=== PATIENT | female | born 1980 ===

== ENCOUNTER 2017-06-30 09:17 | Inpatient (IN) | payer MEDICAID ==
[2017-06-30 10:21] LABS: BASO % 0.4 % (0.0-2.0); EOS % 0.5 % (0.0-4.0); HEMATOCRIT 36.5 % (34.0-47.0); LYMPH # 2.4 K/uL (1.0-4.3); LYMPH % 31.2 % (20.0-40.0); MEAN CELL VOLUME 73.6 fL (81.0-99.0); MEAN CORPUSCULAR HEMOGLOBIN 23.9 pg (27.0-31.0); MEAN CORPUSCULAR HGB CONC 32.5 g/dL (33.0-37.0); MEAN PLATELET VOLUME 9.5 fL (7.2-11.7); MONO # 0.7 K/uL (0.0-0.8); MONO % 8.4 % (0.0-10.0); RED CELL DISTRIBUTION WIDTH 14.9 % (11.5-14.5); WHITE BLOOD COUNT 7.8 K/uL (4.8-10.8)
[2017-06-30 10:28] LABS: RBC URINE 1 /hpf (0-3); URINE BACTERIA RARE (<OCC); URINE BILIRUBIN NEGATIVE (NEGATIVE); URINE BLOOD NEGATIVE (NEGATIVE); URINE COLOR Yellow (YELLOW); URINE GLUCOSE (UA) NORMAL (Normal); URINE HYALINE CAST 0-2 /lpf (0-2); URINE KETONE NEGATIVE (NEGATIVE); URINE LEUKOCYTE ESTERASE 3+ Leu/uL (Negative); URINE PROTEIN NEGATIVE (NEGATIVE); URINE UROBILINOGEN NORMAL mg/dL (0.2-1.0); WBC URINE 13 /hpf (0-5)
[2017-06-30 10:33] LABS: ALKALINE PHOSPHATASE 169 U/L (38-126); ALT/SGPT 41 U/L (9-52); AST/SGOT 28 U/L (14-36); BILIRUBIN,TOTAL 0.8 mg/dL (0.2-1.3); BLOOD UREA NITROGEN 10 mg/dL (7-17); CALCIUM 7.9 mg/dl (8.6-10.4); CARBON DIOXIDE 22 mmol/L (22-30); CHLORIDE 107 mmol/L (98-107); GFR AFRICAN-AMERICAN > 60; GLUCOSE,RANDOM 71 mg/dL (65-105); POTASSIUM 4.1 mmol/L (3.6-5.2); SODIUM 137 mmol/L (132-148); TOTAL PROTEIN 7.1 g/dL (6.3-8.3)
[2017-06-30 10:37] LABS: ALB/GLOB RATIO 0.9 (1.0-2.1)
[2017-06-30] MEDS ORDERED: cefOXitin IV 2 gm in Dextrose 2 GM/50 ML BAG IVPB ONE ×3 (11:12→20:22)
[2017-06-30] MEDS ORDERED: Sodium Citrate/Citric Acid 15 ml Sol PO ONE (11:12)
[2017-06-30] MEDS ORDERED: Lactated Ringer's 1,000 ML IV SCH (11:15)
[2017-06-30] MEDS ORDERED: Sodium Citrate/Citric Acid 15 ml Sol ONE (11:36)
[2017-06-30] MEDS ORDERED: Oxytocin 10 Units/ml Inj ONE (11:43)
[2017-06-30] MEDS ORDERED: Morphine 1 mg/ml preservative-free Inj(Duramorph) ONE (12:29)
[2017-06-30] MEDS ORDERED: Oxycodone/Acetaminophen 5/325 mg Tab PO PRN ×2 (13:37)
[2017-06-30] MEDS: Simethicone 80 mg Chewtab PO SCH ×2 (14:38→17:56)
[2017-06-30] MEDS ORDERED: DiphenhydrAMINE 50 mg/ml Inj IVP PRN (15:48)
--- NOTE | 2017-06-30 15:53 | HP ---
PROCEDURE DATE: 06/30/2017 HISTORY OF PRESENT ILLNESS: The patient is a 37-year-old female, 3, para 2 with a history of 2 previous sections, who comes in complaining of contractions since approximately 1:00 a.m. this morning. She also complains of decreased movement. The patent is 38 weeks by gestation, currently on insulin for gestational diabetes. course is significant for history of gestational diabetes controlled with insulin. The patient has had poor sugars in the last 2 weeks and had been recommended by Dr. Rogers for delivery at 37 weeks. PAST OBSTETRICAL HISTORY: Significant for section x2. PAST MEDICAL HISTORY: Significant for gestational diabetes. ALLERGIES: NONE. CURRENT MEDICATIONS: Vitafol 1 tablet daily. PHYSICAL EXAMINATION: VITAL SIGNS: Her blood pressure is 110/70, pulse is 72, respiratory rate is 20, temperature is 98.8. HEAD, EYES, EARS, NOSE AND THROAT: Within normal. CHEST: Clear. CARDIAC: Reveals normal heart sounds without any murmurs. LUNGS: Clear. BREASTS: Reveal no masses. ABDOMEN: Symphyseal-fundal height is 38 cm longitudinal lie, vertex. heart tones are normal. PELVIC: Cervix is 2 cm, 50% effaced, -2 station, vertex. ADMITTING DIAGNOSES: Intrauterine at 37 weeks, poorly-controlled gestational diabetes, insulin dependent; in early labor. There is decreased movement. PLAN: To admit the patient for a lower segment section. Prior to being staged for the surgical procedure, the patient underwent an informed consent, discussion and education session with me in the hospital lasting approximately 45 minutes, during which time I explained with an understandable terms the following, the nature and extent of the disease process and the nature and extent of the contemplated operation. Also explained were the risks and potential complications of the operative procedures to include, but not limited to infection, hemorrhage, deep vein thrombosis, atelectasis, pneumonia, pulmonary embolism, damage to the bladder, damage to the ureter, renal insufficiency, renal failure, wound infection, wound dehiscence, incisional hernia, keloid formation, damage to large and small intestines, damage to inferior vena cava and the aorta requiring extensive repair and anesthesia complications. Electrolyte imbalance, possibility of , low scores, breathing difficulties in the baby, risk of prematurity and other complications that were discussed, but are not listed above. I also discussed with the patient the anticipated benefits and results of the surgery including a conservative estimate of the successful outcome. I discussed with the patient about the operation that are not accomplished. I informed the patient of the possibility of unanticipated pathology requiring a more extensive procedure. All of the questions from the patient were encouraged, welcomed and answered to her satisfaction. Emmanuel Vidal MD
[2017-06-30] MEDS: (Novolog) Insulin Aspart, Recombinant 100 u/ml 10 ml vial SC SCH ×2 (16:06→23:18)
[2017-06-30] MEDS ORDERED: Dextrose 5%/Lactated Ringer's 1,000 ML IV SCH (16:15)
[2017-06-30] MEDS ORDERED: cefOXitin IV 2 gm in Dextrose 2 GM/50 ML BAG IVPB SCH (20:30)
[2017-07-01] MEDS ORDERED: cefOXitin 2 GM in Sodium Chloride 0.9% 100 ML IV SCH (04:30)
[2017-07-01] MEDS: (Novolog) Insulin Aspart, Recombinant 100 u/ml 10 ml vial SC SCH ×4 (06:32→22:31)
[2017-07-01] MEDS: Simethicone 80 mg Chewtab PO SCH ×4 (06:35→22:25)
[2017-07-01 08:33] LABS: BASO % 0.2 % (0.0-2.0); EOS % 0.4 % (0.0-4.0); HEMATOCRIT 34.6 % (34.0-47.0); LYMPH # 1.3 K/uL (1.0-4.3); LYMPH % 15.1 % (20.0-40.0); MEAN CELL VOLUME 74.5 fL (81.0-99.0); MEAN CORPUSCULAR HEMOGLOBIN 24.4 pg (27.0-31.0); MEAN CORPUSCULAR HGB CONC 32.8 g/dL (33.0-37.0); MEAN PLATELET VOLUME 9.5 fL (7.2-11.7); MONO # 0.7 K/uL (0.0-0.8); MONO % 8.6 % (0.0-10.0); RED CELL DISTRIBUTION WIDTH 15.1 % (11.5-14.5); WHITE BLOOD COUNT 8.5 K/uL (4.8-10.8)
[2017-07-01] MEDS: Enoxaparin 40 mg Syringe SC SCH (10:55)
[2017-07-01] MEDS ORDERED: cefOXitin IV 2 gm in Dextrose 2 GM/50 ML BAG IVPB ONE ×2 (12:00→14:10)
[2017-07-01] MEDS ORDERED: Bisacodyl 5mg EC Tab PO ONE (13:38)
--- NOTE | 2017-07-01 18:50 | OP ---
PROCEDURE DATE: 06/30/2017 PREOPERATIVE DIAGNOSES: Intrauterine at 37 weeks, poorly controlled diabetes mellitus, early labor. POSTOPERATIVE DIAGNOSES: Intrauterine at 37 weeks, poorly controlled diabetes mellitus, early labor. PROCEDURE: Lower segment section. SURGEON: Emmanuel Vidal MD. INTERPRETER FOR THE DEAF: Garry Marquez MD. FINDINGS: A live male . Apgars 9 at one minute and 9 at five minutes with normal tubes and ovaries. ESTIMATED BLOOD LOSS: 300 mL. COMPLICATIONS: Nil. DESCRIPTION OF PROCEDURE: After the risks, benefits and alternatives of the planned procedures, including but not limited to infection, hemorrhage, deep vein thrombosis, atelectasis, pneumonia, pulmonary embolism, damage to the bladder, damage to the ureter, renal insufficiency, renal failure, wound infection, wound dehiscence, incisional hernia, keloid formation, damage to the large and small intestine, damage to the inferior vena cava and the aorta requiring extensive repair, anesthesia complications, electrolyte imbalance, possibility of , fluid overload, cerebral edema, air embolism and other complications that were discussed, but are not listed above, have been explained to the patient and all her questions answered, informed consent was obtained. The patient was taken to the operating room in a stable condition. Under suitable level of spinal anesthesia, she was prepped and draped in a sterile fashion after having been placed in a supine position. The abdomen was entered through a Pfannenstiel-type incision and carried through the subcutaneous tissues to the fascia. Fascia was opened transversely and dissected off the rectus abdominis musculature. The rectus abdominis musculature was then in the midline to remove the parietal peritoneum, which was entered sharply and incised superiorly and inferiorly. The bladder peritoneum was then incised in a curvilinear fashion and dissected off the lower uterine segment. The lower uterine segment was then entered through a curvilinear incision. Surgeon's fingers were inserted into the lower uterine segment to grasp the infant's head, which was lying in a right occipital anterior position. Head was easily delivered. Nose and mouth were suctioned free of amniotic fluid and the remainder of the was delivered without any difficulty. Cord was doubly clamped and cut. The baby was handed over to the pediatricians who were in attendance. Cord blood was collected. Pitocin running, placenta was manually removed. The endometrium was then cleaned free of remaining membranes and clots. The uterine incision was then closed in layers with the first layer being a running interlocking layer using #1 chromic and the second layer being used to imbricate the first layer. Hemostasis was good. The bladder peritoneum was then reapproximated using running suture of 2-0 chromic. Peritoneal cavity was then irrigated using copious amounts of saline. The saline was evacuated. The abdomen was then closed in layers with 0 chromic to the parietal peritoneum. Recti muscles were reapproximated using interrupted sutures of 0 chromic. Fascia was reapproximated using 2 separate running sutures of 0 Vicryl to meet in the midline. Subcutaneous tissues were reapproximated using interrupted sutures of 0 plain and the initial skin incision was reapproximated using 4-0 Vicryl in a subcuticular fashion. Estimated blood loss for the procedure was 300 mL. Pad, needle and instrument counts were correct x2. There were no complications. Emmanuel Vidal MD
[2017-07-02] MEDS: (Novolog) Insulin Aspart, Recombinant 100 u/ml 10 ml vial SC SCH ×2 (06:46→11:59)
[2017-07-02] MEDS: Simethicone 80 mg Chewtab PO SCH ×5 (07:48→21:40)
[2017-07-02] MEDS: Enoxaparin 40 mg Syringe SC SCH (09:51)
[2017-07-02] MEDS: guaiFENesin 100 mg/5 ml Syrup UD PO PRN ×2 (12:00→17:27)
--- NOTE | 2017-07-02 13:24 | RAD ---
Chest x-ray two views History: Cough. Comparison: None available. Findings: No focal infiltrate or effusion. Bibasilar breast and nipple shadows. Heart size within normal limits. Impression: No focal infiltrate or effusion.
[2017-07-03] MEDS: guaiFENesin 100 mg/5 ml Syrup UD PO PRN (00:07)
[2017-07-03 01:11] VITALS: RESP 20
--- NOTE | 2017-07-03 09:05 | PN ---
DATE: 07/01/2017 SUBJECTIVE: The patient has no complaints. Blood sugars however controlled. OBJECTIVE: VITAL SIGNS: Stable. She is afebrile. CHEST: Clear. CARDIAC: Reports normal heart sounds without any murmur. LUNGS: Clear. BREASTS: Revealed no masses. ABDOMEN: Soft. Bowel sounds are normal. Incision is clean and intact. EXTREMITIES: Nontender with no evidence of DVT. ASSESSMENT AND PLAN: The patient is status cesarian section, day #1. Plan is to ambulate the patient and advanced diet as tolerated. Emmanuel Vidal MD
[2017-07-03] MEDS: Enoxaparin 40 mg Syringe SC SCH (09:08)
[2017-07-03] MEDS: Simethicone 80 mg Chewtab PO SCH ×2 (09:08→13:08)
[2017-07-03] MEDS ORDERED: Influenza Vaccine 60 mcg/0.5 mL SYR (4YR UP) IM ONE (11:04)
--- NOTE | 2017-07-03 13:04 | PN ---
DATE: 06/30/2017 SUBJECTIVE: Patient has no complaints. OBJECTIVE: VITAL SIGNS: Stable. She is afebrile. ABDOMEN: Incision is clean and intact. EXTREMITIES: Nontender. NEUROLOGIC: She is alert and oriented x3. GENITOURINARY: Lochia is scant. BREASTS: Reveal no engorgement. ASSESSMENT AND PLAN: Patient is status post section day #3. Plan is to discharge the patient on Keflex 500 mg b.i.d. x7 days and Tylenol No. 3 two tablets q. 4 hourly p.r.n. for a total of 40 tablets, to be followed up in the office in 1 week. Emmanuel Vidal MD
[2017-07-03 21:51] VITALS: BP 119/72; PULSE 93; TEMP 97.5; O2SAT 98
--- NOTE | 2017-07-04 21:38 | OBHP ---
Datetime: 06/30/2017 11:42 IP Adm Impression: Term, intrauterine IP Admit Plan: Admit to unit Admit Comment, IP Provider: Patient is a 37 year old at 37w4d NAMAN 07/17/17 presents to L+D for decreased movement. Patient feeling occasional contractions. Currently denies VB, LOF. Issues: GDMA2 - on insulin (regular and NPH) Rh negative - recieved rhogam Advanced Maternal Age OB Hx: 1. 2004 PLTCD at term 2/2 low fluid, male infant, no complications 2. 2008 RLTCD at term, male , child with autism 3. 2012 Ectopic preganancy 4. Current BABY NURSE Hx: LMP 10/10/16 [facility] - 13 x regular x 5 days Denies hx of fibroids, ovarian cysts, STIs Denies hx of abnormal pap smears Allergies: NKDA Medications: Insulin, PNV Medical Hx: Denies Surgical Hx: C/S x 2, Laparoscopic cholecystectomy in 2005 Social Hx: Denies alcohol, tobacco, drug use; lives with and children Family Hx: Non-contributory PE: See above A/P: 37 yo at 37w4d presents w decreased FM, poorly controlled DM, previous C/S x 2 in ear ly labor -Per Dr Rogers recommendations, will admit for Repeat C/S -CEFM and TOCO -Admission labs - CBC, CMP, TS, UA, RPR, HIV -LR @ 125 cc/hr -Diet: NPO -Insert Shaw -Anesthesia notified -Plan discussed with attending Princess Raphael DO PGY-1 Extremities - PN: Normal Abdomen - PN: Normal Lungs - PN: Normal Heart - PN: Normal Neurologic - PN: Normal HEENT - PN: Normal General - PN: Normal FHR - Baseline A Provider: 140 Contraction Comments Provider: occasional Comments, ACOG Physical Exam: VSS Gen: AAOx3 CV: RRR Lungs: CTA B/L Abd: Soft, gravid Ext: No clubbing, cyanosis, edema; no calf tenderness SVE: 1-2/50/-3 IP Hx Assessment: The History has been Reviewed and is Current EGA AdmitDate IP: 37.4 Vital Signs Provider: Reviewed; Within Normal Limits IP Chief Complaint: Uterine contractions; Decreased movement NICHD Variability Prov Fetus A: Moderate 6-25bpm NICHD Accel Fetus A IP Provider: [id number] FHR Category Provider Fetus A: Category I NICHD Decel Fetus A IP Provider: None
== END 2017-07-03 16:15 | disposition home or self-care (01) | DRG 371 ==
LOC: C.EROB 09:17 → C.4D 09:55 → C.4M 20:45
PROVIDERS: ADMIT Obstetrics & Gynecology Reproductive Endocrinology; ATTEND Obstetrics & Gynecology Reproductive Endocrinology
PROC: 10D00Z1 Extraction of Products of Conception, Low, Open Approach (ICD-10-PCS; principal; 2017-06-30)
DX: O34.211 Maternal care for low transverse scar from previous cesarean delivery (principal); O24.424 Gestational diabetes mellitus in childbirth, insulin controlled; Z37.0 Single live birth; Z3A.37 37 weeks gestation of pregnancy